=== PATIENT | male | born 1980 | race Caucasian/White ===

== ENCOUNTER 2022-12-29 19:20 | Emergency (ER) | payer MEDICAID ==
[~2022-12-29] VITALS: Ht 177.8 cm; Wt 90.7 kg
[2022-12-29 19:28] VITALS: BP_SYST 187
--- NOTE | 2022-12-29 19:37 | NUR ---
Patient to ER bed 5 to gown for evaluation. Side rails up. Report given to QUENTIN RODGERS(REG).
--- NOTE | 2022-12-29 19:45 | NUR ---
PT PLACED IN BED, PT INTOXICATED, RESTLESS NOT LEAVING ANY MEDICAL EQUIPMENT ON.
[2022-12-29 21:43] VITALS: BP_SYST 128
--- NOTE | 2022-12-29 21:44 | NUR ---
Patient given written and verbal discharge instructions and verbalizes understanding. ER MD discussed with patient the results and treatment provided. Patient in stable condition. ID arm band removed. IV catheter removed intact and dressing applied, no active bleeding. Rx of NONE given. Patient educated on pain management and to follow up with PMD. Pain Scale . Opportunity for questions provided and answered. Medication side effect fact sheet provided.
== END 2022-12-29 21:41 | disposition home or self-care (01) ==
LOC: SED 19:20
DX: F10.129 Alcohol abuse with intoxication, unspecified (principal); F10.11 Alcohol abuse, in remission; Z79.899 Other long term (current) drug therapy; Y90.6 Blood alcohol level of 120-199 mg/100 ml
CPT/HCPCS: 99283